=== PATIENT | female | born 1980 | race Caucasian/White ===

== ENCOUNTER 2017-08-24 18:33 | Emergency (ER) | payer SELFPAY ==
[2017-08-24 18:34] VITALS: BP 109/68; PULSE 84; RESP 16; TEMP 37.4; O2SAT 99; BMI 21.7
== END 2017-08-24 20:00 | disposition left against medical advice (07) ==
LOC: ED 20:05
PROVIDERS: Emergency Provider Emergency Medicine
DX: R69 Illness, unspecified (principal)